=== PATIENT | male | born 2005 | race Caucasian/White ===

== ENCOUNTER 2024-05-06 06:12 | Day surgery (SDC) | payer OTHER ==
[~2024-05-06] VITALS: Ht 180.3 cm; Wt 105.4 kg
[~2024-05-06 06:12] MED LIST: TRANEXAMIC ACID 100 MG/ML 10ML VIAL IV ONE
[2024-05-06] MEDS ORDERED: NS (Normal Saline) 0.9% 1,000 ML IV SCH (06:55)
[2024-05-06] MEDS ORDERED: propofoL 200 MG/20 ML VIAL As Ordered ONE (07:07)
[2024-05-06] MEDS ORDERED: ROCURONIUM BROMIDE 50MG/5ML VIAL As Ordered ONE (07:07)
[2024-05-06] MEDS ORDERED: MIDAZOLAM INJ 2MG/2ML VIAL As Ordered ONE (07:07)
[2024-05-06] MEDS ORDERED: LIDOCAINE 2% 100MG/5ML SDV (FOR ANES.) As Ordered ONE (07:07)
[2024-05-06] MEDS ORDERED: fentaNYL 100 MCG/2 ML INJECTION As Ordered ONE (07:07)
[2024-05-06] MEDS ORDERED: ONDANSETRON 4MG 2ML VIAL As Ordered ONE (07:08)
[2024-05-06] MEDS ORDERED: HYDROmorphone HCL 2MG/ML 1ML VIAL As Ordered ONE (07:12)
[2024-05-06] MEDS ORDERED: ACETAMINOPHEN 1000MG/100ML IV BAG As Ordered ONE (07:13)
[2024-05-06] MEDS ORDERED: dexmedeTOMIDine (4MCG/ML)200MCG/50ML BTL (PRECEDEX) As Ordered ONE (07:14)
[2024-05-06] MEDS ORDERED: MIDAZOLAM INJ 2MG/2ML VIAL IV PRN (07:20)
[2024-05-06] MEDS ORDERED: EPINEPHrine INJ 1 MG/ML 1ML AMP PN ONE (07:20)
[2024-05-06] MEDS ORDERED: dexAMETHasone 10MG/1ML VIAL PRES.FREE PN ONE (07:20)
[2024-05-06] MEDS ORDERED: ROPIvacaine 0.5% 30ML VIAL PN ONE (07:20)
[2024-05-06] MEDS: ceFAZolin SOD 2 GM in IV 1 EA IV ONE (08:09)
[2024-05-06] MEDS: TRANEXAMIC ACID 100 MG/ML 10ML VIAL As Ordered ONE (08:17)
[2024-05-06] MEDS ORDERED: KETOROLAC 60MG 2ML VIAL As Ordered ONE (08:31)
[2024-05-06] MEDS ORDERED: SUGAMMADEX SODIUM 500 MG/5 ML VIAL (BRIDION) As Ordered ONE (08:31)
[2024-05-06] MEDS: EPINEPHrine INJ 1 MG/ML 1ML AMP As Ordered ONE (10:05)
[2024-05-06] MEDS ORDERED: ceFAZolin 2 GM/D5W 50 ML IV BAG As Ordered ONE (11:54)
[2024-05-06] MEDS ORDERED: MEPERIDINE 25 MG/ML 1ML VIAL IV PRN (12:50)
[2024-05-06] MEDS ORDERED: oxyCODONE 5MG TAB PO PRN (12:50)
[2024-05-06] MEDS ORDERED: fentaNYL 100 MCG/2 ML INJECTION IV PRN (12:50)
[2024-05-06] MEDS: ONDANSETRON 4MG 2ML VIAL IV PRN (13:15)
[2024-05-06] MEDS ORDERED: oxyCODONE 5MG TAB PO ONE (13:30)
[2024-05-06] MEDS: PROMETHAZINE 25MG/ML 1ML VIAL IV PRN (13:44)
[2024-05-06] MEDS: HYDROMORPHONE HCL 0.5 MG/ 0.5 ML SYRINGE IV PRN (13:47)
[2024-05-06 16:00] VITALS: BP 143/77; TEMP 99.8; O2SAT 96
== END 2024-05-06 16:16 | disposition home or self-care (01) ==
LOC: M SDC 06:12
PROVIDERS: ATTEND Orthopaedic Surgery
DX: M23.611 Other spontaneous disruption of anterior cruciate ligament of right knee (principal); S83.241A Other tear of medial meniscus, current injury, right knee, initial encounter
CPT/HCPCS: 29881; 29888; 73560; C1713; J0131; J0171; J0690; J1100; J1171; J1885; J2250; J2405; J2550; J3010